=== PATIENT | male | born 1980 | race Hispanic/Latino ===

== ENCOUNTER → 2016-12-09 | Outpatient (CLI) | payer OTHER ==
--- NOTE | 2016-12-20 01:29 | ECWPNPC ---
PATIENT NAME: DAVID JONES : 1980 GENDER: MALE VISIT DATE: 12/09/2016 DISCHARGE DATE: 12/09/16 1035 VISIT LOCKED DATE TIME: PHYSICIAN: NATIVIDAD HOUSTON RESOURCE: NATIVIDAD HOUSTON REASON FOR APPOINTMENT 1. BACK PAIN HISTORY OF PRESENT ILLNESS NEW PATIENT CONSULT: WHEN DID YOUR PAIN FIRST START? . BRIEFLY DESCRIBE HOW YOUR PAIN STARTED? . HOW DOES YOUR PAIN CHANGE WITH TIME? . DOES YOUR PAIN AWAKEN YOU FROM SLEEP? . HOW MANY HOURS OF SLEEP DO YOU NORMALLY GET? . ANY DIAGNOSTIC TESTING? . FACILITY WHERE TESTS WERE DONE? ____. PAIN TREATMENT TREATMENT YES CANCER HAVE YOU EVER HAD ANY TYPE OF CANCER?NO NO. 35 YEAR OLD MALE PATIENT WITH HISTORY OF CHRONIC LOW BACK PAIN. PATIENT DESCRIBES THE PAIN SHARP WITH A PAIN SCORE OF 7/10. PATIENT STATES THAT HIS PAIN STARTED 3 MONTHS AGO WHILE EXERCISING. MR. JONES STATES THAT CURRENTLY HE IS DOING PHYSICAL THERAPY BUT IT DOES NOT GIVE HIM LONG LASTING RELIEF FROM PAIN. CURRENTLY HE IS NOT USING ANY MEDICATION TO AID IN PAIN RELIEF. PATIENT DENIES ANY BACK SURGERY OR INJECTIONS IN THE PAST. MR. JONES STATES THAT IN THE MORNING HE HAS TO WALK IN A FLEXED POSITION DUE TO THE PAIN. PATIENT REPORTS HAVING PAIN INCREASED WITH WALKING AND OTHER PHYSICAL ACTIVITIES AND AT THIS TIME THE ONLY THING THAT AIDS IN PAIN RELIEF IS RESTING. PATIENT DENIES UNEXPLAINABLE WEIGHT LOSS, FEVER, CHILLS, NEW CHANGES ON HIS URINARY OR BOWEL CONTROL. PAIN SCREENING: PATIENT HAS A COMPLAINT OF ACUTE OR CHRONIC PAIN :YES FALL RISK SCREENING: SCREENING :NO FALLS IN THE PAST YEAR MURRAY INVENTORY: QUESTIONNAIRE ASSESSEDTBD SCORE VALUE CALCULATED TBD CURRENT MEDICATIONS NONE PAST MEDICAL HISTORY NO MEDICAL HISTORY. ALLERGIES N.K.D.A. SURGICAL HISTORY NO SURGICAL HISTORY DOCUMENTED. FAMILY HISTORY NO FAMILY HISTORY DOCUMENTED. SOCIAL HISTORY GENERAL: RASTAFARIAN [id number] ORIENTAL ORTHODOX LANGUAGE LANGUAGES SPOKEN:BOTH SLOVENIAN AND TURKMEN EDUCATION LEVEL OF EDUCATION:[employer] [facility] PFS, CLERGY, PUBLIC HEALTH REFERRALS CLERGY REFERRAL NEEDED?NO WAS THE PROVIDER NOTIFIED OF ANY PERTINENT INFO?NO PFS REFERRAL NEEDED?NO PUBLIC HEALTH REFERRAL NEEDED?NO PATIENT: ____. ADVANCED DIRECTIVES HEALTH CARE PROXY?NO HEALTH CARE PROXY INFORMATINA GIVEN TO PT. POWER OF TIRE FABRICATOR?NO HOSPITALIZATION/MAJOR DIAGNOSTIC PROCEDURE NO HOSPITALIZATION HISTORY. REVIEW OF SYSTEMS CONSTITUTIONAL: ANY CHANGE IN YOUR MEDICAL CONDITION? NO . CHILLS NO . FEVER NO . INFECTION: DO YOU HAVE NEW INFECTIONS? NO . DO YOU HAVE HISTORY OF MRSA? NO . MUSCULOSKELETAL: ANY NEW PATTERNS OF PAIN OR NUMBNESS? NO . SYTEMIC LUPUS NO . GASTROENTEROLOGY: ANY NEW CHANGE IN BOWEL CONTROL? NO . BARRETTS ESOPHAGUS NO . CIRRHOSIS NO . HEPATITIS NO . LIVER FAILURE NO . ACID REFLUX NO . UNEXPLAINED WEIGHT LOSS NO . GENITOURINARY: ANY NEW CHANGE IN BLADDER CONTROL? NO . IS THERE A CHANCE YOU COULD BE ? NO . HEMATOLOGY/LYMPH: DO YOU TAKE ANY BLOOD THINNERS? (FOR EXAMPLE- COUMADIN, PLAVIX, AGGRENOX, PLATEL, PRADAXA, OR XARELTO) NO . WHEN WAS YOUR LAST DOSE? DATE: TIME: . LOW PLATELET COUNT NO . SICKLE CELL DISEASE NO . VON WILLIEBRANDS NO . FACTOR V LEIDEN NO . THALLASEMIA NO . ANEMIA NO . EASY BRUISING NO . NEUROLOGY: HAVE YOU FALLEN IN THE PAST 6 MONTHS? NO . ANY NEW EXTREMITY NUMBNESS OR WEAKNESS? NO . HEAD INJURY NO . DEMENTIA NO . CEREBRAL PALSY NO . MULTIPLE SCLEROSIS NO . DIZZINESS NO . HEADACHE NO . STROKES NO . VERTIGO NO . CARDIOLOGY: DO YOU HAVE A PACEMAKER OR DEFIBRILLATOR? NO . ANGINA NO . HEART ATTACK NO . HEART SURGERY NO . CONGESTIVE HEART FAILURE/FLUID OVERLOAD NO . CHEST PAIN NO . HIGH BLOOD PRESSURE NO . IRREGULAR HEART BEAT NO . RESPIRATORY: HAVE YOU BEEN SICK IN THE PAST WEEK? NO . FEVER NO . FLU LIKE SYMPTOMS? NO . CPAP NO . BYPAP NO . ASTHMA NO . EMPHYSEMA NO . CHRONIC LUNG DISEASES NO . SHORTNESS OF BREATH ON EXERTION NO . DO YOU USE ANY TYPE OF TOBACCO (SMOKE, SMOKELESS, CHEW)? NO . COUGH NO . SNORING NO . INTEGUMENTARY: DO YOU HAVE ANY RASHES OR OPEN SORES? NO . ALLERGIC/IMMUNO: ARE YOU ALLERGIC TO SHELLFISH OR IV DYE? NO . ANY NEW ALLERGIES? NO . PSYCHIATRIC: DO YOU HAVE THOUGHTS OF HURTING YOURSELF OR SOMEONE ELSE? NO . ARE YOU ABUSED, NEGLECTED, OR IN AN UNSAFE ENVIRONMENT? NO . ENDOCRINOLOGY: ARE YOU DIABETIC? NO . THYROID DISORDER NO . OTHER: DO YOU NEED ANY PRESCRIPTIONS? NO . IF YES, PLEASE LIST: ____ . ANY NEW PROBLEMS WITH YOUR MEDICATIONS? NO . WHEN DID YOU LAST EAT? ____ . WHEN DID YOU LAST DRINK? ____ . WHAT DID YOU LAST DRINK? ____ . NAME OF PERSON DRIVING YOU HOME? ____ . DO YOU HAVE ANY OTHER QUESTIONS OR CONCERNS NO . REVIEWED BY: PROVIDER: NATIVIDAD HOUSTON MD . VITAL SIGNS WT 193.2 LBS, HT 56 IN, BMI 43.31 INDEX, BP 128/74 MM HG, HR 70 /MIN, RR 18 /MIN, TEMP 97.7 F, OXYGEN SAT % 97, NA INITIALS AW 0857, REVIEWED BY: VD. EXAMINATION : PATIENT IS ALERT O X 3 AND COOPERATIVE. TENDERNESS IN THE LOWER BACK AND PARASPINAL MUSCLE GROUP. RIGHT LEG WEAKER THEN THE LEFT AT FLEXION. MRI DONE ON . ASSESSMENTS INTERVERTEBRAL DISC DISORDERS WITH RADICULOPATHY, LUMBOSACRAL REGION - M51.17 (PRIMARY) TREATMENT INTERVERTEBRAL DISC DISORDERS WITH RADICULOPATHY, LUMBOSACRAL REGION NOTES: WE DISCUSSED SEVERAL ISSUES WITH MR. JONES'S PAIN MANAGEMENT CASE. I WAS WITH THE PATIENT FOR OVER 25 MINUTES IN COORDINATION OF HIS CARE DISCUSSING THE POSSIBILITY OF SURGERY WELL INTERVENTIONS THAT MAY AID THE PATIENT IN PAIN RELIEF. I SPOKE WITH THE RADIOLOGIST DR. LWOE TO DISCUSS THE MRI. THE RADIOLOGIST STATED THAT FROM LOOKING AT THE REPORT HE DOES NOT SEE EVIDENCE OF FRAGMENTS. I SPOKE WITH DR. KAPOOR FROM [facility] TO DISCUSS IF THE PATIENT WAS STILL A CANDIDATE FOR SURGERY AND THE PATIENT WILL RETURN TO SEE THE SURGEON TO DISCUSS THIS NEW INFORMATION. AT THIS TIME THE PATIENT WILL CONTINUE WITH THE SAME MEDICATION REGIME BEFORE. DUE TO WHERE THE PATIENT REPORTS HAVING THE MOST PAIN AND AFTER VIEWING THE MRI I BELIEVE THE PATIENT WOULD BENENFITS MOST FROM A LUMBAR EPIDURAL. WE DISCUSSED THE RISKS, BENEFITS, AND ALTNERATIVES WITH THE PATIENT AND HE WOULD LIKE TO PROCEED AT THIS TIME. INSTRUCTIONS WERE GIVEN, QUESTIONS WERE ANSWERED, PATIENT REPORTS UNDERSTANDING AND AGREES WITH THE PLAN. I, SAPPHIRE PAYAN, DOCUMENTED THE ABOVE INFORMATION ACTING A SCRIBE FOR DR. HOUSTON. I HAVE REVIEWED THE ABOVE DOCUMENT, WRITTEN BY SAPPHIRE BAIRD AND I VERIFY THAT IT IS ACCURATE. DEAR ISRA DC:THANK YOU FOR YOUR KIND REFERRAL OF MR. JONES. YOU WANT TO DISCUSS HER CASE WITH ME PLEASE CALL ME AT THE PAIN CENTER AT [phone]. SINCERELY,NATIVIDAD HOUSTON, [facility] MEDICINE. OTHERS NOTES: LUMBAR EPIDURAL INJECTION: YOUR PROCEDURE MATERIAL WAS PRINTED. PROCEDURE CODES FA211 ESTABILISHED PATIENT [facility] FACILITY CHARGE G8427 DOC MEDS VERIFIED W/PT OR RE G8730 PAIN ASSESS POS TOOL F/U PLAN DOC DISPOSITION & COMMUNICATION FOLLOW UP LESI AFTER APPROVAL ELECTRONICALLY SIGNED BY NATIVIDAD HOUSTON MD ON 12/19/2016 AT 11:22 AM EDT DISCLAIMER : THIS IS A VISIT SUMMARY EXTRACTED FROM THE [employer] CHART. IT IS NOT A COPY OF THE [employer] PROGRESS NOTE. RAMÍREZ
== END ==
LOC: M PAIN 08:40
PROVIDERS: ATTEND Anesthesiology
DX: G89.29 Other chronic pain (principal); M51.17 Intervertebral disc disorders with radiculopathy, lumbosacral region